=== PATIENT | female | born 2000 | race African-American/Black ===

== ENCOUNTER 2020-09-27 15:50 | Emergency (ER) | payer OTHER ==
[~2020-09-27] VITALS: Ht 165.1 cm; Wt 79.4 kg
[2020-09-27] MEDS ORDERED: CIPROFLOXIN HC2.5 M1 OPHTHALMIC (17:29)
[2020-09-27 17:59] VITALS: BP 119/76
== END 2020-09-27 15:57 | disposition home or self-care (01) ==
LOC: ER 15:50
DX: S05.01XA Injury of conjunctiva and corneal abrasion without foreign body, right eye, initial encounter (principal); W22.8XXA Striking against or struck by other objects, initial encounter; Y93.89 Activity, other specified; Y92.89 Other specified places as the place of occurrence of the external cause; Y99.8 Other external cause status